=== PATIENT | female | born 1950 | race Caucasian/White ===

== ENCOUNTER 2016-09-07 15:11 | Emergency (ER) | payer MEDICARE ==
[~2016-09-07] VITALS: Ht 167.6 cm; Wt 83.0 kg
[~2016-09-07 15:11] MED LIST: FLUO.1%O LEFT EYE; IBUP-238 PO; TYLE3 PO; VALA500 PO; VIGA0.5D LEFT EYE; ZIRG0.15 LEFT EYE
[2016-09-07 15:24] VITALS: BP 176/115; PULSE 102; RESP 17; TEMP 98.2; O2SAT 98
[2016-09-07] MEDS ORDERED: VALT1TAB PO (15:41)
[2016-09-07] MEDS ORDERED: EYE GTTS (15:41)
[2016-09-07] MEDS ORDERED: ORPHENADRINE INJ 60 MG/2 ML AMP IM ONE (16:15)
[2016-09-07] MEDS ORDERED: KETOROLAC TROMETHAMINE 60 MG/2 ML (IM) VIAL IM ONE (16:15)
--- NOTE | 2016-09-07 16:21 | PD ---
HPI Chief Complaint: Back/ Neck Pain or Injury Time Seen by Provider: 16:00 Travel History International Travel<30 days: No Contact w/Intl Traveler<30days: No Traveled to known affect area: No History of Present Illness HPI 65-year-old female presents emergency department for evaluation of right low back pain and muscle spasm 1 day. Patient reports history of chronic low back pain with occasional muscle spasms after she sustained a fall 30 years ago. She reports similar symptoms in the past. She reports the pain as intermittent spasming in nature, nonradiating, worse with movement relieved with rest, 8 out of 10 in severity. Patient denies fever, chills, chest pain, shortness of breath, abdominal pain, urinary frequency or urgency or dysuria, numbness tingling in the lower extremities. Patient denies any significant past medical history. [facility] Past Medical History Medical History: Denies Significant Hx Hypertension: Yes Neurologic: Yes (CHRONIC BACK PAIN) ?: Not Menopausal: Yes Past Surgical History Tonsillectomy: Yes Social History Alcohol Use: No Tobacco Use: No Substance Use: No Allergies-Medications (Allergen,Severity, Reaction): Coded Allergies: No Known Allergies (Verified , 09/07/16) Reported Meds & Prescriptions Reported Meds & Active Scripts Active Review of Systems Except as stated in HPI: all other systems reviewed are Neg Physical Exam Narrative GENERAL: [Alert, well-appearing female, mild distress with movement-] SKIN: Focused skin assessment warm/dry. HEAD: Atraumatic. Normocephalic. EYES: Pupils equal and round. No scleral icterus. No injection or drainage. ENT: No nasal bleeding or discharge. Mucous membranes pink and moist. NECK: Trachea midline. No JVD. CARDIOVASCULAR: Regular rate and rhythm. No murmur appreciated. RESPIRATORY: No accessory muscle use. Clear to auscultation. Breath sounds equal bilaterally. GASTROINTESTINAL: Abdomen soft, non-tender, nondistended. Hepatic and splenic margins not palpable. MUSCULOSKELETAL: No obvious deformities. No clubbing. No cyanosis. No edema. NEUROLOGICAL: Awake and alert. No obvious cranial nerve deficits. Motor grossly within normal limits. Normal speech. 2+ DTRs in lower extremities. Normal sensation with 2-point discrimination in lower extremities. Dorsiflex and plantarflex intact. BACK: No midline spine tenderness. No CVA tenderness. Right sided paraspinous muscle spasm and tenderness in the thoracic lumbar region. PSYCHIATRIC: Appropriate mood and affect; insight and judgment normal. Data Data Last Documented VS Vital Signs Date Time Temp Pulse Resp B/P Pulse Ox O2 Delivery O2 Flow Rate FiO2 09/07/16 17:46 83 16 191/100 96 09/07/16 15:24 98.2 Orders Ketorolac Inj (Toradol Inj) (09/07/16 16:15) Orphenadrine Inj (Norflex Inj) (09/07/16 16:15) Oxycodone-Acetamin 5-325 Mg (Percocet (09/07/16 17:30) MDM Medical Decision Making Medical Screen Exam Complete: Yes Emergency Medical Condition: Yes Differential Diagnosis Lumbar strain, paraspinous muscle spasm Narrative Course 65 year old female presents to the emergency department for evaluation of right low back pain and muscle spasms. She reports similar episodes in the past. She denies injury. She denies numbness or tingling or weakness in lower extremities. No incontinence. On exam she is tender of the paraspinous muscles in the low thoracic lumbar region. Patient will be given a shot of Toradol and Norflex and reassessed. 1715 patient reports only mild improvement after medications. She reports the pain is only present with movement. Patient will be given Percocet and discharged with NSAIDs and muscle relaxers. Patient is agreeable to this plan. Patient reports pain is slightly improved after Percocet. Still has pain with movement. Patient ambulating without difficulty. Patient will be discharged home. Diagnosis Primary Impression: Muscle spasm of back Referrals: Primary Care Physician Scripts Ibuprofen 800 Mg Exn888 Mg PO Q8H PRN (Pain/Inflammation) #30 TAB Prov:Ena Sam 09/07/16 Methocarbamol (Robaxin)750 Mg [id number] Mg PO TID #12 TAB Ref 0 Prov:Ena Sam 09/07/16 Disposition: DISCHARGE HOME Condition: Stable Ena Sam Sep 07, 2016 16:21 Muscle spasm of back Referrals: Primary Care Physician Disposition: 01 DISCHARGE HOME Condition: Stable Ena Sam Sep 07, 2016 16:21
[2016-09-07] MEDS ORDERED: LOSA50TA PO (17:29)
[2016-09-07] MEDS ORDERED: GLIM1TAB PO (17:29)
[2016-09-07] MEDS ORDERED: GUAN2TAB PO (17:29)
[2016-09-07] MEDS ORDERED: METF500T PO (17:29)
[2016-09-07] MEDS ORDERED: VENTAER INH (17:29)
[2016-09-07] MEDS ORDERED: PANT40TA3 PO (17:29)
[2016-09-07] MEDS ORDERED: SIMV20TA PO (17:29)
[2016-09-07] MEDS ORDERED: ALEN1TAB48 PO (17:29)
[2016-09-07] MEDS ORDERED: PROP20TA3 PO (17:29)
[2016-09-07] MEDS ORDERED: SPIRCAP INH (17:29)
[2016-09-07] MEDS ORDERED: RAPA1TAB PO (17:29)
[2016-09-07] MEDS ORDERED: DULE100A INH (17:29)
[2016-09-07] MEDS ORDERED: oxyCODONE/ACETAMINOPHEN 5 MG/325 MG TAB PO ONE (17:30)
[2016-09-07 17:46] VITALS: BP 191/100; PULSE 83; RESP 16; O2SAT 96
[2016-09-07] MEDS ORDERED: ROBA750T PO (18:39)
[2016-09-07] MEDS ORDERED: IBUP800T23 PO (18:39)
== END 2016-09-07 18:44 | disposition home or self-care (01) ==
LOC: PHEFT 15:11
DX: M62.830 Muscle spasm of back (principal); G89.29 Other chronic pain; M54.5 Low back pain; I10 Essential (primary) hypertension
CPT/HCPCS: 96372; 99284; J1885; J2360

== ENCOUNTER → 2016-09-12 | Outpatient (CLI) | payer MEDICARE ==
[~2016-09-12] MED LIST changes: -FLUO.1%O LEFT EYE; -IBUP-238 PO; +IBUP800T23 PO; +ROBA750T PO; -TYLE3 PO; -VALA500 PO; -VIGA0.5D LEFT EYE; -ZIRG0.15 LEFT EYE
== END ==
LOC: PLAB 13:24
PROVIDERS: ATTEND Emergency Medicine
DX: H16.23 Neurotrophic keratoconjunctivitis (principal)
CPT/HCPCS: 36415; 82565

== ENCOUNTER 2016-10-07 18:06 | Emergency (ER) | payer MEDICARE ==
[~2016-10-07] VITALS: Ht 165.1 cm; Wt 80.0 kg
[2016-10-07 18:08] VITALS: BP 220/109; PULSE 107; RESP 16; TEMP 98.2; O2SAT 97
--- NOTE | 2016-10-07 18:41 | PD ---
HPI . Elevated creatinine Chief Complaint: Abnormal Results Time Seen by Provider: 18:17 Travel History International Travel<30 days: No Contact w/Intl Traveler<30days: No Traveled to known affect area: No History of Present Illness HPI Patient presents with chief complaint of an elevated creatinine. The patient is having her renal function monitored because of high dose Valtrex for ocular herpes. She had her blood drawn the first part of September and then went on vacation. She received a phone call while on vacation instructing her to present to a health care facility as soon as possible because her creatinine was 54. She did not want to go to a health care facility away from home so waited until she got home and presented here. Her only complaint is chronic right low back pain. She states she had a fall 30 years ago and has had chronic low back pain since that time. She states that the only thing that helps her with her back pain as Depo-Medrol. She states that her last dose of Depo-Medrol was 9 years ago. PFSH Past Medical History Hypertension: Yes Neurologic: Yes (CHRONIC BACK PAIN) Menopausal: Yes Past Surgical History Tonsillectomy: Yes Social History Alcohol Use: No Tobacco Use: No Substance Use: No Allergies-Medications (Allergen,Severity, Reaction): Coded Allergies: No Known Allergies (Verified , 09/07/16) Reported Meds & Prescriptions Reported Meds & Active Scripts Active Ibuprofen 800 Mg Tab 800 Mg PO Q8H PRN Robaxin (Methocarbamol) 750 Mg Tab 750 Mg PO TID Review of Systems Except as stated in HPI: all other systems reviewed are Neg Musculoskeletal: Positive: Pain (right low back) Physical Exam Narrative GENERAL: Awake and alert and in no acute distress. SKIN: Warm and dry. HEAD: Atraumatic. Normocephalic. EYES: Pupils equal and round. Extraocular movements intact. ENT: No nasal bleeding or discharge. Mucous membranes pink and moist. NECK: Trachea midline. CARDIOVASCULAR: Regular rate and rhythm. Heart sounds normal. RESPIRATORY: No accessory muscle use. Lungs clear with full air movement throughout. GASTROINTESTINAL: Abdomen soft, non-tender, nondistended. MUSCULOSKELETAL: No obvious deformities. No edema. No tenderness to palpation in the right low back. NEUROLOGICAL: Awake and alert. No obvious cranial nerve deficits. Motor grossly within normal limits. Normal speech. PSYCHIATRIC: Appropriate mood and affect; insight and judgment normal. Data Data Last Documented VS Vital Signs Date Time Temp Pulse Resp B/P Pulse Ox O2 Delivery O2 Flow Rate FiO2 10/07/16 19:13 87 16 172/81 96 Room Air 10/07/16 18:08 98.2 Orders Basic Metabolic Panel (Bmp) (10/07/16 18:35) Methylprednisolone Acetate Inj (Depo-Med (10/07/16 18:45) Labs Laboratory Tests Test 10/07/16 18:45 Sodium Level 140 MEQ/L Potassium Level 3.7 MEQ/L Chloride Level 105 MEQ/L Carbon Dioxide Level 25.1 MEQ/L Anion Gap 10 MEQ/L Blood Urea Nitrogen 13 MG/DL Creatinine 0.89 MG/DL Estimat Glomerular Filtration 63 ML/MIN Rate Random Glucose 102 MG/DL Calcium Level 9.0 MG/DL MDM Medical Decision Making Medical Screen Exam Complete: Yes Emergency Medical Condition: Yes Medical Record Reviewed: Yes (this patient's most recent creatinine done on 09/12 was 0.97 with a GFR of 57.) Differential Diagnosis Differential diagnosis includes but is not limited to muscular low back pain, DDD, spinal stenosis, epidural abscess, sciatica, kidney infection or stone. Narrative Course Patient presents because she was told to come in to be evaluated for elevated creatinine. Her most recent creatinine was reportedly 54. I will give the patient a dose of Depo-Medrol. We will repeat her BMP. BMP Diagram 10/07/16 18:45 This patient's BUN and creatinine are normal. She is safe for discharge. Diagnosis Primary Impression: Back pain Qualified Code: M54.5 - Chronic right-sided low back pain without sciatica Patient Instructions: Acute Low Back Pain (GEN), General Instructions Disposition: 01 DISCHARGE HOME Condition: Stable Cary Simms MD Oct 07, 2016 18:41
[2016-10-07] MEDS ORDERED: methylPREDNISolone ACETATE 80 MG/ML VIAL IM ONE (18:45)
[2016-10-07 19:13] VITALS: BP 172/81; PULSE 87; RESP 16; O2SAT 96
[2016-10-07 20:00] LABS: BICARBONATE 25.1 MEQ/L (21.0-32.0)
[2016-10-07 20:36] LABS: POTASSIUM 3.7 MEQ/L (3.5-5.1)
== END 2016-10-07 20:56 | disposition home or self-care (01) ==
LOC: NEPD 18:06
DX: M54.5 Low back pain (principal); I10 Essential (primary) hypertension; Z79.899 Other long term (current) drug therapy; Z86.69 Personal history of other diseases of the nervous system and sense organs
CPT/HCPCS: 80048; 96372; 99284; J1040

== ENCOUNTER 2017-03-11 13:50 | Emergency (ER) | payer MEDICARE ==
[~2017-03-11] VITALS: Ht 175.3 cm; Wt 81.8 kg
[2017-03-11 13:50] VITALS: BP 153/93; PULSE 84; RESP 20; TEMP 98.1; O2SAT 97
[~2017-03-11 13:50] MED LIST changes: +IBUP1TAB7 PO; -IBUP800T23 PO
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
[2017-03-11 14:49] LABS: AUTOMATED NEUTROPHIL # 5.3 TH/MM3 (1.8-7.7); BASOPHIL # 0.1 TH/MM3 (0-0.2); BASOPHIL % 0.9 % (0.0-2.0); EOSINOPHIL # 0.2 TH/MM3 (0-0.4); EOSINOPHIL % 2.2 % (0.0-4.0); HEMATOCRIT 45.4 % (35.0-46.0); HEMO FLAGS DIFF FINAL; LYMPH % 39.2 % (9.0-44.0); LYMPHOCYTE # 3.9 TH/MM3 (1.0-4.8); MEAN CELL VOLUME 104.9 FL (80.0-100.0); MEAN CORPUSCULAR HEMOGLOBIN 35.7 PG (27.0-34.0); MONO % 4.9 % (0.0-8.0); NEUT % 52.8 % (16.0-70.0); PLATELET COUNT 339 TH/MM3 (150-450); RED BLOOD COUNT 4.33 MIL/MM3 (4.00-5.30); RED CELL DISTRIBUTION WIDTH 15.3 % (11.6-17.2)
[2017-03-11 14:59] LABS: BACTERIA, URINE RARE /hpf; BLOOD, URINE NEG (NEG); COMMENT (UR) CULT NOT INDICATED; CULTURE IF INDICATED CULT NOT INDICATED; GLUCOSE,URINE NEG (NEG); HYALINE CAST, URINE 1 /lpf (RARE); KETONE, URINE NEG (NEG); MUCUS URINE FEW /lpf (OCC); NITRITE,URINE NEG (NEG); SQUAMOUS EPITHELIAL CELL URINE <1 /hpf (0-5); URINE COLOR COLORLESS (YELLW/STRAW)
[2017-03-11 15:10] LABS: ALKALINE PHOSPHATASE 72 U/L (45-117); TOTAL BILIRUBIN ADULT 0.4 MG/DL (0.2-1.0)
[2017-03-11 15:14] LABS: ACETAMINOPHEN LESS THAN 2.0 MCG/ML (10.0-30.0); ALCOHOL 295 MG/DL (0-5); ALT (GPT) 50 U/L (10-53); ANION GAP 10 MEQ/L (5-15); AST (GOT) 35 U/L (15-37); BICARBONATE 21.9 MEQ/L (21.0-32.0); BLOOD UREA NITROGEN 7 MG/DL (7-18); CHLORIDE 111 MEQ/L (98-107); GLOMERULAR FILTRATION RATE 83 ML/MIN (>89); POTASSIUM 4.2 MEQ/L (3.5-5.1); SODIUM (NA) 143 MEQ/L (136-145)
[2017-03-11 18:00] VITALS: BP 130/84; TEMP 97.8
[2017-03-11 18:27] VITALS: BP 141/83; PULSE 83; RESP 18; O2SAT 100
[2017-03-11] MEDS ORDERED: VALA500T PO (19:45)
[2017-03-11] MEDS ORDERED: FLAR0.1S RIGHT EYE (19:45)
[2017-03-11] MEDS ORDERED: PILL SPLITTER OTHER PRN (20:00)
[2017-03-11] MEDS ORDERED: valACYclovir HCL 500 MG TAB PO ONE (20:00)
[2017-03-11] MEDS ORDERED: FLUOROMETHOLONE 0.1% OPHT SUSP 5 ML BTL RIGHT EYE ONE (20:00)
[2017-03-11] MEDS ORDERED: IBUPROFEN 400 MG TAB PO ONE (22:30)
[2017-03-11] MEDS ORDERED: TEMAZEPAM 15 MG CAP PO ONE (22:45)
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
--- NOTE | 2017-03-11 23:39 | PD ---
Physical Exam Time Seen by Provider: 23:20 Data Data Last Documented VS Vital Signs Date Time Temp Pulse Resp B/P (MAP) Pulse Ox O2 Delivery O2 Flow Rate FiO2 03/11/17 18:27 83 18 141/83 (102) 100 Room Air 03/11/17 18:00 97.8 Orders Orders Complete Blood Count With Diff (03/11/17 14:06) Comprehensive Metabolic Panel (03/11/17 14:06) Urinalysis - C+S If Indicated (03/11/17 14:06) Psych Screen (03/11/17 14:06) Drug Screen, Random Urine (03/11/17 14:06) Alcohol (Ethanol) (03/11/17 14:06) Salicylates (Aspirin) (03/11/17 14:06) Tylenol (Acetaminophen) (03/11/17 14:06) Diet Regular Basic (03/11/17 Dinner) Fluorometholone 0.1% Opth Susp (Fml Liqu (03/11/17 20:00) Valacyclovir (Valtrex) (03/11/17 20:00) Pill Splitter (Pill Splitter) (03/11/17 20:00) Ibuprofen (Motrin) (03/11/17 22:30) Temazepam (Restoril) (03/11/17 22:45) Labs Laboratory Tests Test 03/11/17 14:30 White Blood Count 10.0 TH/MM3 Red Blood Count 4.33 MIL/MM3 Hemoglobin 15.4 GM/DL Hematocrit 45.4 % Mean Corpuscular Volume 104.9 FL Mean Corpuscular Hemoglobin 35.7 PG Mean Corpuscular Hemoglobin Concent 34.0 % Red Cell Distribution Width 15.3 % Platelet Count 339 TH/MM3 Mean Platelet Volume 7.9 FL Neutrophils (%) (Auto) 52.8 % Lymphocytes (%) (Auto) 39.2 % Monocytes (%) (Auto) 4.9 % Eosinophils (%) (Auto) 2.2 % Basophils (%) (Auto) 0.9 % Neutrophils # (Auto) 5.3 TH/MM3 Lymphocytes # (Auto) 3.9 TH/MM3 Monocytes # (Auto) 0.5 TH/MM3 Eosinophils # (Auto) 0.2 TH/MM3 Basophils # (Auto) 0.1 TH/MM3 CBC Comment DIFF FINAL Differential Comment Urine Color COLORLESS Urine Turbidity CLEAR Urine pH 5.0 Urine Specific [place] 1.003 Urine Protein NEG mg/dL Urine Glucose (UA) NEG mg/dL Urine Ketones NEG mg/dL Urine Occult Blood NEG Urine Nitrite NEG Urine Bilirubin NEG Urine Urobilinogen LESS THAN 2.0 MG/DL Urine Leukocyte Esterase TRACE Urine WBC 4 /hpf Urine Squamous Epithelial Cells <1 /hpf Urine Bacteria RARE /hpf Urine Hyaline Casts 1 /lpf Urine Mucus FEW /lpf Microscopic Urinalysis Comment CULT NOT INDICATED Blood Urea Nitrogen 7 MG/DL Creatinine 0.70 MG/DL Random Glucose 89 MG/DL Total Protein 7.4 GM/DL Albumin 3.5 GM/DL Calcium Level 8.3 MG/DL Alkaline Phosphatase 72 U/L Aspartate Amino Transf (AST/SGOT) 35 U/L Alanine Aminotransferase (ALT/SGPT) 50 U/L Total Bilirubin 0.4 MG/DL Sodium Level 143 MEQ/L Potassium Level 4.2 MEQ/L Chloride Level 111 MEQ/L Carbon Dioxide Level 21.9 MEQ/L Anion Gap 10 MEQ/L Estimat Glomerular Filtration Rate 83 ML/MIN Salicylates Level LESS THAN 1.7 MG/DL Urine Opiates Screen NEG Acetaminophen Level LESS THAN 2.0 MCG/ML Urine Barbiturates Screen NEG Urine Amphetamines Screen NEG Urine Benzodiazepines Screen NEG Urine Cocaine Screen NEG Urine Cannabinoids Screen NEG Ethyl Alcohol Level 295 MG/DL [facility] Medical Record Reviewed: Yes Supervised Visit with JADEN: No Narrative Course Please see previous provider's notes. This patient has been cleared by psychiatry. She has no medical condition that would warrant additional hospitalization. She does have chronic lower back pain and is requesting an injection of Solu-Medrol which is helped in the past. This will be facilitated. She is being discharged into the care of her daughter. Diagnosis Primary Impression: Alcohol abuse Additional Impression: PTSD (post-traumatic stress disorder) Patient Instructions: General Instructions Departure Forms: Tests/Procedures Additional Instruction: WE RECOMMEND ALCOHOL DEPENDENCE TREATMENT. A LIST OF COMMUNITY RESOURCES PROVIDED. Disposition: 01 DISCHARGE HOME Condition: Stable Adria Booker Mar 11, 2017 23:39
[2017-03-11] MEDS ORDERED: methylPREDNISolone SOD SUCC 125 MG/2 ML VIAL IM STA (23:43)
[2017-03-12] MEDS ORDERED: methylPREDNISolone SOD SUCC 125 MG/2 ML VIAL IM SCH (09:00)
== END 2017-03-12 00:10 | disposition home or self-care (01) ==
LOC: NEPD 13:50 → NEPJ 03-12 00:10
DX: F10.10 Alcohol abuse, uncomplicated (principal); F43.10 Post-traumatic stress disorder, unspecified; M54.5 Low back pain; G89.29 Other chronic pain; I10 Essential (primary) hypertension; Z79.899 Other long term (current) drug therapy
CPT/HCPCS: 80053; 80307; 81001; 85025; 96372; 99284; J2930